=== PATIENT | female | born 1950 | race Two or more races ===

== ENCOUNTER 2020-05-08 07:28 | Inpatient (IN) | payer MEDICARE, OTHER ==
[2020-05-05 11:38] LABS: Basophils # (auto) 0 10 ^3/uL (0-0.2); Basophils % (auto) 0.8 % (0.0-2.0); Eosinophils # (auto) 0.2 10 ^3/uL (0-0.8); Eosinophils % (auto) 2.9 % (0.0-7.0); Hematocrit 38.1 % (36.0-46.0); Hemoglobin 12.7 g/dL (12.2-16.2); Lymphocytes # (auto) 2.1 10 ^3/uL (0.4-5.4); Lymphocytes % (auto) 38.9 % (10.0-50.0); Mean Corpuscular Hemoglobin 28.6 pg (28.0-32.0); Mean Corpuscular Hgb Conc. 33.3 g/dL (32.0-36.0); Mean Corpuscular Volume 85.9 fL (80.0-100.0); Monocytes # (auto) 0.2 10 ^3/uL (0-1.3); Monocytes % (auto) 4.1 % (0.0-12.0); Neutrophils # (auto) 2.9 10 ^3/uL (1.6-8.6); Neutrophils % (auto) 53.3 % (37.0-80.0); Platelet Count (auto) 269 10^3/uL (140-450); Red Blood Cells 4.44 10^6/uL (4.0-5.20); Red Cell Distribution Width 16.1 % (11.8-14.3); White Blood Cell 5.4 10^3/uL (4.4-10.8)
[2020-05-05 11:49] LABS: INR 0.98 (0.9-1.15); Partial Thromboplastin Time 28.5 sec (23.64-32.05)
[2020-05-05 11:50] LABS: Urine Bacteria NONE SEEN /hpf (None Seen); Urine Blood Negative /uL (Negative); Urine Mucus FEW (None Seen); Urine Specific Gravity 1.027 (1.001-1.035); Urine WBC 1 /hpf (0 - 5)
[2020-05-05 12:28] LABS: Calcium 8.7 mg/dL (8.5-10.1)
[2020-05-05 12:41] LABS: Albumin 3.4 g/dL (3.4-5.0); BUN/Creatinine Ratio 19.7; Bilirubin, Total 0.5 mg/dL (0.2-1.0); Total Protein 7.9 g/dL (6.4-8.2)
[~2020-05-08] VITALS: Ht 152.4 cm; Wt 73.4 kg
[2020-05-08] MEDS ORDERED: ceFAZolin 1GM/50ML 50 ML IV ONE (08:00)
[2020-05-08] MEDS ORDERED: ROCURONIUM 10MG/ML 10ML VIAL IV ONE (08:12)
[2020-05-08] MEDS ORDERED: PROPOFOL 10 MG/ML 20 ML IV ONE (08:12)
[2020-05-08] MEDS ORDERED: HYDROmorphone HCL 2 MG/ML VL ONE (08:12)
[2020-05-08] MEDS ORDERED: SODIUM CHLORIDE LOCK 10 ML ONE (08:12)
[2020-05-08] MEDS ORDERED: fentaNYL CITRATE 5 ML ONE (08:12)
[2020-05-08] MEDS ORDERED: ONDANSETRON HCL 4 MG/2 ML VIAL ONE (08:12)
[2020-05-08] MEDS ORDERED: fentaNYL CITRATE 100 MCG/2 ML VL ONE (08:12)
[2020-05-08] MEDS ORDERED: MIDAZOLAM HCL 1MG/1ML-2 ML VIAL ONE (08:12)
[2020-05-08] MEDS ORDERED: SODIUM CHLORIDE LOCK 50 ML ONE (08:12)
[2020-05-08] MEDS ORDERED: METOCLOPRAMIDE HCL 5MG/ml INJ 2ml VIAL IV PRN (09:00)
[2020-05-08] MEDS ORDERED: fentaNYL CITRATE 100 MCG/2 ML VL IV PRN (09:00)
[2020-05-08] MEDS ORDERED: MORPHINE SULFATE 4 MG/ML SYR/VIAL IV PRN (09:00)
[2020-05-08] MEDS ORDERED: HYDROmorphone HCL 2 MG/ML VL IV PRN (09:00)
[2020-05-08] MEDS ORDERED: BACITRACIN INJ 50000 UNIT VIAL ONE (09:06)
[2020-05-08] MEDS: D5W/LACTATED RINGERS 1,000 ML IV SCH ×2 (11:35→21:42)
[2020-05-08] MEDS ORDERED: MORPHINE SULF INJ 2 MG/ML SYRINGE 1ML IV PRN (11:45)
[2020-05-08] MEDS ORDERED: ACETAMINOPHEN 325 MG TAB PO PRN (11:45)
[2020-05-08] MEDS ORDERED: ceFAZolin 1GM/50ML 50 ML IV SCH (11:45)
[2020-05-08] MEDS ORDERED: HYDROcodone-ACET 10/325MG TAB PO PRN (11:45)
[2020-05-08] MEDS ORDERED: NITROGLYCERIN 0.4 MG SL TAB SL PRN (11:45)
--- NOTE | 2020-05-08 14:45 | NUR ---
Report received from SOLAR DESIGNER CASI. ERIKA LOOMIS brought to bed 295B following procedure on quality assurance monitor final and portable oxygen. Patient transfered to unit bed, connected to quality assurance monitor final #71 and oxygen. Surgical site assessed for any bleeding, redness or swelling. Radial pulse on affected arm assessed for positive tissue perfusion. Patient instructed on need to notify staff immediately if any pain, burning or wetness to site. All questions and concerns addressed, patient verbalized understanding of all education and instruction. See notes for any further.
[2020-05-08] MEDS: MORPHINE SULF INJ 2 MG/ML SYRINGE 1ML IV PRN ×2 (15:21→20:14)
[2020-05-08 15:38] VITALS: BP 132/77
[2020-05-08 17:00] VITALS: BP 122/76
[2020-05-08] MEDS: ceFAZolin 1GM/50ML 50 ML IV SCH (17:02)
--- NOTE | 2020-05-08 19:19 | NUR ---
CLOSING SHIFT NOTE ENDORSED CARE TO COATER HELPER SUNSHINE AYALA. PATIENT HAS NO S/S OF DISTRESS/SOB OR PAIN AT THIS TIME. Addendum: 05/08/20 at 1923 by Maryellen Drake RN RN REPORT GIVEN TO AFSHAN
--- NOTE | 2020-05-08 19:35 | NUR ---
Opening Shift Note Assumed care of patient, awake and alert. No S/S of distress/SOB. Noted dressing on left shoulder dry and intact with arm sling on. Instructed on POC and to call for assist PRN, patient verbalized understanding. Safety precaution in place, call light within reach, will continue to monitor for changes Q1hr and PRN.
[2020-05-08 20:00] VITALS: BP 134/74
[2020-05-08] MEDS: DOCUSATE SOD 100 MG CAP PO SCH (21:43)
[2020-05-08 22:00] VITALS: BP 134/74
[2020-05-09] VITALS (7 sets, daily range): BP systolic 120–133; BP diastolic 68–83
[2020-05-09] MEDS: ceFAZolin 1GM/50ML 50 ML IV SCH ×2 (01:00→09:53)
[2020-05-09] MEDS: MORPHINE SULF INJ 2 MG/ML SYRINGE 1ML IV PRN ×4 (06:36→23:10)
--- NOTE | 2020-05-09 07:25 | NUR ---
Opening Shift Note Assumed care of patient, awake and alert. No S/S of distress/SOB or pain noted at this time, dressing to left shoulder CDI. Instructed on POC and to call for assist PRN, call light within reach, able to use right hand to call for assist, instructed to use incentive spirometer QA1hr [place], pt verbalized understanding, will continue to monitor for changes Q1hr and PRN.
[2020-05-09] MEDS: D5W/LACTATED RINGERS 1,000 ML IV SCH ×2 (07:35→17:35)
[2020-05-09 08:21] LABS: Basophils # (auto) 0 10 ^3/uL (0-0.2); Basophils % (auto) 0.6 % (0.0-2.0); Eosinophils # (auto) 0.1 10 ^3/uL (0-0.8); Eosinophils % (auto) 0.9 % (0.0-7.0); Hematocrit 34.7 % (36.0-46.0); Hemoglobin 11.9 g/dL (12.2-16.2); Lymphocytes # (auto) 0.7 10 ^3/uL (0.4-5.4); Lymphocytes % (auto) 11.2 % (10.0-50.0); Mean Corpuscular Hemoglobin 29.2 pg (28.0-32.0); Mean Corpuscular Hgb Conc. 34.3 g/dL (32.0-36.0); Mean Corpuscular Volume 85.2 fL (80.0-100.0); Monocytes # (auto) 0.3 10 ^3/uL (0-1.3); Monocytes % (auto) 4.7 % (0.0-12.0); Neutrophils # (auto) 5.4 10 ^3/uL (1.6-8.6); Neutrophils % (auto) 82.6 % (37.0-80.0); Platelet Count (auto) 215 10^3/uL (140-450); Red Blood Cells 4.07 10^6/uL (4.0-5.20); Red Cell Distribution Width 15.5 % (11.8-14.3); White Blood Cell 6.5 10^3/uL (4.4-10.8)
[2020-05-09 08:31] LABS: Albumin 3.2 g/dL (3.4-5.0); Calcium 8.5 mg/dL (8.5-10.1); Potassium 3.5 mmol/L (3.5-5.1)
[2020-05-09 08:34] LABS: BUN/Creatinine Ratio 13.9; Bilirubin, Total 1.2 mg/dL (0.2-1.0); Total Protein 7.1 g/dL (6.4-8.2)
--- NOTE | 2020-05-09 09:25 | NUR ---
CLARIFIED BERNARD INSERTION ORDER CALLED AND SPOKE WITH DR FOWLER REGARDING BERNARD INSERTION, ORDER NOTED TO INSERT BERNARD AND DC BERNARD, ORDERED AT THE EXACT SAME TIME, MD STATES TO INSERT BERNARD, CONT CARE
[2020-05-09] MEDS: DOCUSATE SOD 100 MG CAP PO SCH ×2 (09:53→21:57)
--- NOTE | 2020-05-09 11:30 | NUR ---
Stanford catheter insertion Patient assessed and determined to be in need of stanford catheter. Order obtained from Dr Wilkins. Patient educated on catheter and reason for insertion. All questions answered. Stanford catheter 16 guage [place] inserted with clean sterile technique. Patient tolerated well.
--- NOTE | 2020-05-09 19:30 | NUR ---
Opening Shift Note Assumed care of patient, awake and alert. No S/S of distress/SOB or pain. Instructed on POC and to callfor assist PRN, will continue to monitor for changes Q1hr and PRN.Dressing CDI. Advised to ambulate and incentive spirometer use.
[2020-05-09] MEDS ORDERED: RIVAROXABAN 10 MG TAB PO ONE (22:00)
[2020-05-10 05:00] VITALS: BP 128/71
[2020-05-10] MEDS: D5W/LACTATED RINGERS 1,000 ML IV SCH ×2 (05:43→13:35)
[2020-05-10] MEDS: MORPHINE SULF INJ 2 MG/ML SYRINGE 1ML IV PRN (05:59)
--- NOTE | 2020-05-10 07:20 | NUR ---
Opening shift note Assumed care patient comfortably resting in bed, AOx4, denies pain at this time. No s/s of distress noted at this moment. Patient updated on POC for the day and to call for assistance as needed, patient verbalized understanding. Will continue care.
[2020-05-10 09:00] VITALS: BP 125/63
[2020-05-10] MEDS ORDERED: RIVAROXABAN 10 MG TAB PO SCH (10:00)
--- NOTE | 2020-05-10 10:00 | NUR ---
Stanford catheter dc'd Order to discontinue stanford catheter. Stanford dc'd with clean technique following deflation of balloon. Patient tolerated well with no complaints of pain. Continue care.
[2020-05-10] MEDS: DOCUSATE SOD 100 MG CAP PO SCH (10:44)
--- NOTE | 2020-05-10 11:29 | NUR ---
Pain Patgient complaining of pain to left shoulder s/p total shoulder arthroplasty. Patient rates pain 6/10. Will medicate per doctors orders and reassess. Patient also repositioned for comfort at this time.
--- NOTE | 2020-05-10 12:33 | NUR ---
Pain reassessment Per patient pain is down to 3/10 and patient is comfortable.
[2020-05-10 13:14] VITALS: BP 125/63
--- NOTE | 2020-05-10 14:06 | NUR ---
Discharge instructions given as ordered. Encourage to follow up with PMD as instructed. All questions and concerns addressed. Patient verbalized understanding. New prescriptions given to patient. IV removed with catheter intact, pressure dressing applied, stanford catheter removed. Telemetry unit returned to ICU. Patient taken to vehicle via wheelchair with all personal belongings, accompanied by staff. No distress noted at time of departure.
--- NOTE | 2020-05-10 16:18 | NUR ---
assessment re: consult for dc planning Patient is a 69 year old female who is alert and oriented. Patients cognitive abilities are intact. Prior to admission patient lived home with her Faheem and functioned independently. Patient informed me she is able to care for her own ADLs. Per patient she will return home to her prior living arrangements post discharge and family will transport her home. Patient has been admitted for left shoulder replacement. I informed patient there is a ss consult for discharge planning. Patient informed me she had her right shoulder done last year and she was fine. Patient informed me she has no needs at home. Patient has refused home health. Patient informed me she has her and daughter that will be able to care for her if she needs it. Patient informed me she has good family support. Patient has no post discharge needs at this time. I informed patient she has a right to speak to a administrator social welfare regarding all care. I informed patient she has a right to participate in any and all discharge planning. Patient does not have a POA and advanced directive. I have offered patient information on POA and advanced directives. I informed the patient the advantages and benefits of having an Advanced Directive. Patient verbalized understanding and agreed to discharge plan. Addendum: 05/10/20 at 1625 by Kimberly CLARK Amended: Links added.
== END 2020-05-10 14:05 | disposition home or self-care (01) | DRG 483 ==
LOC: OVERFLOW 07:28 → EDSTATUS 08:30 → TELE-WESTW 15:01
PROVIDERS: ADMIT Orthopaedic Surgery; ATTEND Orthopaedic Surgery
PROC: 0RRK00Z Replacement of Left Shoulder Joint with Reverse Ball and Socket Synthetic Substitute, Open Approach (ICD-10-PCS; principal; 2020-05-08 09:19)
DX: M19.012 Primary osteoarthritis, left shoulder (principal); M24.512 Contracture, left shoulder; I10 Essential (primary) hypertension; Z11.59 Encounter for screening for other viral diseases
CPT/HCPCS: 36415; 73020; 80053; 81001; 85025; 85610; 85730; 86850; 86900; 86901; C1713; G0378; J0690; J2250; J2405; J2704

== ENCOUNTER → 2020-08-28 | Day surgery (SDC) | payer MEDICARE, OTHER ==
[2020-08-24 13:08] LABS: Eosinophils # (auto) 0.2 10 ^3/uL (0-0.8); Nucleated Red Blood Cells % 0.2 %
[2020-08-24 13:11] LABS: Basophils # (auto) 0.1 10 ^3/uL (0-0.2); Basophils % (auto) 1.2 % (0.0-2.0); Eosinophils % (auto) 3.6 % (0.0-7.0); Hematocrit 39.2 % (36.0-46.0); Lymphocytes # (auto) 1.9 10 ^3/uL (0.4-5.4); Lymphocytes % (auto) 36.8 % (10.0-50.0); Mean Corpuscular Hemoglobin 26.3 pg (28.0-32.0); Mean Corpuscular Hgb Conc. 33.1 g/dL (32.0-36.0); Mean Corpuscular Volume 79.3 fL (80.0-100.0); Monocytes # (auto) 0.3 10 ^3/uL (0-1.3); Monocytes % (auto) 4.9 % (0.0-12.0); Neutrophils # (auto) 2.8 10 ^3/uL (1.6-8.6); Neutrophils % (auto) 53.5 % (37.0-80.0); Platelet Count (auto) 253 10^3/uL (140-450); Red Blood Cells 4.94 10^6/uL (4.0-5.20); Red Cell Distribution Width 16.9 % (11.8-14.3); White Blood Cell 5.2 10^3/uL (4.4-10.8)
[2020-08-24 13:18] LABS: Urine Bacteria FEW /hpf (None Seen); Urine Blood Negative /uL (Negative); Urine Mucus FEW (None Seen); Urine Specific Gravity 1.017 (1.001-1.035); Urine WBC 2 /hpf (0 - 5)
[2020-08-24 13:28] LABS: INR 0.97 (0.9-1.15); Partial Thromboplastin Time 28.8 sec (23.0-31.2)
[2020-08-24 14:11] LABS: Albumin 3.8 g/dL (3.4-5.0); Calcium 9.5 mg/dL (8.5-10.1); Potassium 4.7 mmol/L (3.5-5.1)
[2020-08-24 14:24] LABS: Bilirubin, Total 0.6 mg/dL (0.2-1.0); Total Protein 8.4 g/dL (6.4-8.2)
[~2020-08-28] VITALS: Ht 152.4 cm; Wt 74.8 kg
[~2020-08-28] MED LIST: BUPIVACAINE W/ EPINEPH 0.25% INJ 50ML MDV ONE; DexAMETHasone SOD PHOS 10MG/1ML VIAL INJ ONE; HYDROmorphone HCL 2 MG/ML VL ONE; METH500T22 PO; MIDAZOLAM HCL 1MG/1ML-2 ML VIAL ONE; ONDANSETRON HCL 4 MG/2 ML VIAL ONE; PERCOT PO; PROPOFOL 10 MG/ML 20 ML IV ONE; ROCURONIUM 10MG/ML 10ML VIAL IV ONE; SODIUM CHLORIDE LOCK 10 ML ONE; ceFAZolin 1GM/50ML 50 ML IV ONE; fentaNYL CITRATE 100 MCG/2 ML VL ONE; fentaNYL CITRATE 5 ML ONE
[2020-08-28 13:00] VITALS: BP 169/97
== END | disposition home or self-care (01) ==
LOC: SUR 07:06
PROVIDERS: ATTEND Orthopaedic Surgery
DX: M24.512 Contracture, left shoulder (principal); M97.32XA Periprosthetic fracture around internal prosthetic left shoulder joint, initial encounter; I10 Essential (primary) hypertension; E07.9 Disorder of thyroid, unspecified; E66.9 Obesity, unspecified; Z96.612 Presence of left artificial shoulder joint; Z90.710 Acquired absence of both cervix and uterus; Z68.32 Body mass index [BMI] 32.0-32.9, adult; Z96.611 Presence of right artificial shoulder joint; Z20.828 Contact with and (suspected) exposure to other viral communicable diseases
CPT/HCPCS: 23107; 23700; 24515; 36415; 73020; 80053; 81001; 85025; 85610; 85730; C1713; J0690; J1100; J1170; J2250; J2405; J2704; J3010; Q4100; U0003; 76000; A4565

== ENCOUNTER → 2020-09-11 | Day surgery (SDC) | payer MEDICARE, OTHER ==
[2020-09-06 12:40] LABS: Eosinophils # (auto) 0.3 10 ^3/uL (0-0.8); Lymphocytes # (auto) 1.8 10 ^3/uL (0.4-5.4); Monocytes # (auto) 0.2 10 ^3/uL (0-1.3); Monocytes % (auto) 4.1 % (0.0-12.0); Neutrophils # (auto) 2.9 10 ^3/uL (1.6-8.6); Nucleated Red Blood Cells % 0.1 %; White Blood Cell 5.3 10^3/uL (4.4-10.8)
[2020-09-06 12:42] LABS: Basophils # (auto) 0 10 ^3/uL (0-0.2); Basophils % (auto) 0.6 % (0.0-2.0); Eosinophils % (auto) 5.9 % (0.0-7.0); Hematocrit 33.7 % (36.0-46.0); Hemoglobin 10.8 g/dL (12.2-16.2); Lymphocytes % (auto) 33.5 % (10.0-50.0); Mean Corpuscular Hgb Conc. 32.2 g/dL (32.0-36.0); Mean Corpuscular Volume 80.8 fL (80.0-100.0); Neutrophils % (auto) 55.9 % (37.0-80.0); Platelet Count (auto) 380 10^3/uL (140-450); Red Blood Cells 4.17 10^6/uL (4.0-5.20); Red Cell Distribution Width 18.5 % (11.8-14.3)
[2020-09-06 12:47] LABS: Urine Bacteria FEW /hpf (None Seen); Urine Blood TRACE /uL (Negative); Urine Mucus FEW (None Seen); Urine Specific Gravity 1.028 (1.001-1.035); Urine WBC 8 /hpf (0 - 5)
[2020-09-06 12:56] LABS: Partial Thromboplastin Time 26.8 sec (23.0-31.2)
[2020-09-06 13:19] LABS: Calcium 8.8 mg/dL (8.5-10.1); Potassium 3.9 mmol/L (3.5-5.1)
[2020-09-06 13:24] LABS: Albumin 3.4 g/dL (3.4-5.0); BUN/Creatinine Ratio 16.2; Bilirubin, Total 0.7 mg/dL (0.2-1.0); Total Protein 7.8 g/dL (6.4-8.2)
[~2020-09-11] VITALS: Ht 152.4 cm; Wt 74.8 kg
[~2020-09-11] MED LIST changes: +BACITRACIN INJ 50000 UNIT VIAL ONE; +BUPIVACAINE 0.25% INJ 50ML VIAL ONE; -BUPIVACAINE W/ EPINEPH 0.25% INJ 50ML MDV ONE; +FUROSEMIDE 20 MG/2 ML VIAL ONE; +HYDROmorphone HCL 2 MG/ML VL IV PRN; -HYDROmorphone HCL 2 MG/ML VL ONE; +LABETALOL HCL 5 MG/ML 4ML SYRINGE IV PRN; +MEPERIDINE HCL (50 MG/ML) 1 ML VIAL ONE; +MIDAZOLAM HCL 1MG/1ML-2 ML VIAL IV PRN; +MORPHINE SULFATE 4 MG/ML SYR/VIAL IV PRN; +ONDANSETRON HCL 4 MG/2 ML VIAL IV PRN; -ROCURONIUM 10MG/ML 10ML VIAL IV ONE; -SODIUM CHLORIDE LOCK 10 ML ONE; +SUCCINYLCHOLINE CHLORIDE 20 MG/ML 10ML VIAL IV ONE; +ePHEDrine SULFATE 50 MG/ML AMP IV PRN; -fentaNYL CITRATE 5 ML ONE
[2020-09-11 11:15] VITALS: BP 134/78
== END | disposition home or self-care (01) ==
LOC: SUR 06:06
PROVIDERS: ATTEND Orthopaedic Surgery
DX: S42.322A Displaced transverse fracture of shaft of humerus, left arm, initial encounter for closed fracture (principal); D64.9 Anemia, unspecified; E07.9 Disorder of thyroid, unspecified; E66.9 Obesity, unspecified; I10 Essential (primary) hypertension; Z90.710 Acquired absence of both cervix and uterus; Z20.828 Contact with and (suspected) exposure to other viral communicable diseases; Z68.32 Body mass index [BMI] 32.0-32.9, adult; Z90.49 Acquired absence of other specified parts of digestive tract; Z98.890 Other specified postprocedural states; Z79.899 Other long term (current) drug therapy; X58.XXXA Exposure to other specified factors, initial encounter; Y93.89 Activity, other specified; Y92.89 Other specified places as the place of occurrence of the external cause; Y99.8 Other external cause status
CPT/HCPCS: 24515; 36415; 73060; 80053; 81001; 85025; 85610; 85730; C1713; J0330; J0690; J1100; J1170; J1940; J2175; J2250; J2405; J2704; J3010; J3490; U0003; A4565